=== PATIENT | female | born 1975 | race African-American/Black ===

== ENCOUNTER 2024-07-11 10:32 | Emergency (ER) | payer MEDICAID ==
[~2024-07-11] VITALS: Ht 165.1 cm; Wt 88.8 kg
[2024-07-11 11:43] VITALS: BP 153/96; PULSE 77; RESP 16; TEMP 97.9; O2SAT 98
[2024-07-11] MEDS: KETOROLAC TROMETH 30 MG/ML 1ML VIAL IM ONE (11:50)
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
[2024-07-11] MEDS ORDERED: IBU600T PO (13:34)
== END 2024-07-11 13:35 | disposition home or self-care (01) ==
LOC: ER 10:32
DX: S16.1XXA Strain of muscle, fascia and tendon at neck level, initial encounter (principal); V43.52XA Car driver injured in collision with other type car in traffic accident, initial encounter; Y93.89 Activity, other specified; Y92.488 Other paved roadways as the place of occurrence of the external cause; Y99.8 Other external cause status
CPT/HCPCS: 72040; 96372; 99283; J1885